=== PATIENT | male | born 1995 | race African-American/Black ===

== ENCOUNTER 2016-04-14 20:27 | Emergency (ER) | payer BC ==
[~2016-04-14] VITALS: Ht 185.4 cm; Wt 92.4 kg
[2016-04-14 20:36] VITALS: TEMP 37; Ht 185.4 cm; Wt 92.4 kg
[2016-04-14] MEDS ORDERED: CEFTRIAXONE SOD 350MG/ML 1 GM VIAL IM STA (20:52)
[2016-04-14] MEDS ORDERED: AZITHROMYCIN 250 MG TAB PO STA (20:52)
--- NOTE | 2016-04-14 21:22 | EMERGENCY ROOM VISIT NOTE ---
ED Visit Note First contact with patient: 20:44 Chief Complaint: STD Test Request History of Present Illness: Patient is a 20-year-old male who presents to the emergency Department this evening requesting STD testing. He reports that his ex-girlfriend contacted him and informed him that she tested positive for gonorrhea. He reports that he had unprotected sex with her approximately 3 weeks ago. He denies any penile discharge, drainage, burning with urination, or sexual dysfunction. He denies any testicular discomfort. He reports no fevers, chills, nausea, or vomiting. The patient rates his current discomfort as 0/10. Was tested in the summer was found to be negative. Medications: No current medications. Allergies: No known allergies. PMH: No pertinent past medical history. 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 ROS: All pertinent positive and negative review of systems are appropriately documented in the History of Present Illness. Physical Exam: VITAL SIGNS - Vital signs and nursing notes were reviewed. GENERAL - 20-year-old Male appearing his stated age who is in no acute distress. Communicates well with provider and answers questions appropriately. ABDOMEN - Abdominal contour flat and without pulsations or visible masses. BS normoactive all four quadrants. No tenderness to palpation appreciated throughout. No palpable masses, hepatosplenomegaly, or ascites noted. GENITOURINARY - Circumcised male without penile lesions or adhesions. No urethral discharge. No testicular tenderness to palpation appreciated bilaterally. No palpable masses. PSYCH - A&Ox3 and cooperates fully with examiner. Pt is very pleasant and interacts well with examiner. ED Course: Patient was seen and evaluated by myself. I had a lengthy discussion with the patient regarding symptoms. The patient declines urethral swab. The patient's urine was sent for GC and chlamydia testing. Urinalysis will be obtained as well. The patient was treated with 250 mg Rocephin and 1 g of azithromycin. He was instructed on following up with [facility] for repeat testing in one week. The patient was educated on worrisome symptoms for return visit to the emergency department. Patient discharged home in good condition. In the evaluation and treatment of this patient, the following differential diagnoses were considered: Kidney Stone, STI, Bladder Cancer, Amongst Others. Impression: STI Exposure Discharge Instructions: You have been seen in the Emergency Department for your STD Exposure. Urine sample has been obtained to rule out possible infections including Gonorrhea and Chlamydia. You will be contacted with the results of this test in approximately 72 hours. You have been treated prophylactically in the Emergency Department with 250 mg of Rocephin (ceftriaxone) intramuscularly and 1 g of azithromycin orally. This is part of standard protocol to reduce the risk of possible bacterial infection. As with any Emergency Department visit, you should follow-up with your Primary Care Provider from today's visit. Return to the Emergency Department if your symptoms worsen despite the treatment plan outlined above or if you develop the following symptoms: intractable pain, increased swelling, redness, or urethral discharge. Current/Historical Medications No Active Prescriptions or Reported Meds Allergies Coded Allergies: No Known Allergies (Unverified , 04/14/16) Vital Signs Date Time Temp Pulse Resp B/P Pulse Ox O2 Delivery O2 Flow Rate FiO2 04/14/16 21:25 87 20 143/97 98 04/14/16 20:36 37.0 86 16 160/82 96 Room Air Laboratory Results Test 04/14/16 20:50 Urine Color DK YELLOW Urine Appearance CLEAR (CLEAR) Urine pH 5.5 (4.5-7.5) Urine Specific [place] 1.033 (1.000-1.030) Urine Protein NEG (NEG) Urine Glucose (UA) NEG (NEG) Urine Ketones 3+ (NEG) Urine Occult Blood NEG (NEG) Urine Nitrite NEG (NEG) Urine Bilirubin NEG (NEG) Urine Urobilinogen NEG (NEG) Urine Leukocyte Esterase NEG (NEG) Medications Administered Medications (Trade) Dose Ordered Sig/Jyoti Route Start Time Stop Time Status Last Admin Dose Admin Ceftriaxone Sodium (Rocephin Im) 250 mg NOW STAT IM 04/14/16 20:52 04/14/16 20:53 DC 04/14/16 21:01 250 MG Azithromycin (Zithromax Tab) 1,000 mg NOW STAT PO 04/14/16 20:52 04/14/16 20:53 DC 04/14/16 21:01 1,000 MG Departure Information Impression Primary Impression: Exposure to STD Dispostion Home / Self-Care Condition GOOD Prescriptions No Active Prescriptions or Reported Meds Referrals [facility] (PCP) Patient Instructions ED STD Male Treated, [facility] Additional Instructions You have been seen in the Emergency Department for your STD Exposure. Urine sample has been obtained to rule out possible infections including Gonorrhea and Chlamydia. You will be contacted with the results of this test in approximately 72 hours. You have been treated prophylactically in the Emergency Department with 250 mg of Rocephin (ceftriaxone) intramuscularly and 1 g of azithromycin orally. This is part of standard protocol to reduce the risk of possible bacterial infection. As with any Emergency Department visit, you should follow-up with your Primary Care Provider from today's visit. Return to the Emergency Department if your symptoms worsen despite the treatment plan outlined above or if you develop the following symptoms: intractable pain, increased swelling, redness, or urethral discharge.
[2016-04-14 21:25] VITALS: BP 143/97; PULSE 87; O2SAT 98
[2016-04-14 21:31] LABS: URINE APPEARANCE CLEAR (CLEAR); URINE BILIRUBIN NEG (NEG); URINE COLOR DK YELLOW; URINE NITRITE NEG (NEG); URINE PH 5.5 (4.5-7.5); URINE SPECIFIC GRAVITY 1.033 (1.000-1.030); UROBILINOGEN NEG (NEG); ZZUR CULT IF INDIC CLEAN CATCH NO
[2016-04-14 21:32] LABS: MANUAL MICROSCOPIC REQUIRED? NO; REVIEW REQ? NO
[2016-04-18 09:32] LABS: CHLAMYDIA TRACH RNA*** NOT DETECTED (NOT DETECTED); GC (NEIS GONORRHOEAE)RNA** NOT DETECTED (NOT DETECTED)
== END 2016-04-14 21:26 | disposition home or self-care (01) ==
LOC: C.EDB 20:28 → C.EDD 21:26
DX: Z20.2 Contact with and (suspected) exposure to infections with a predominantly sexual mode of transmission (principal)

== ENCOUNTER 2016-09-09 09:40 | Emergency (ER) | payer BC ==
[~2016-09-09] VITALS: Ht 185.4 cm; Wt 91.1 kg
[2016-09-09 09:47] VITALS: TEMP 36.5; Ht 185.4 cm; Wt 91.1 kg
--- NOTE | 2016-09-09 09:57 | EMERGENCY ROOM VISIT NOTE ---
ED Visit Note First contact with patient: 09:56 CHIEF COMPLAINT: Hand injury HISTORY OF PRESENT ILLNESS: This 21-year-old male patient presented to the emergency department after they injured the right hand yesterday afternoon playing football, patient states he fell he caught it wrong and pain in side of his hand since that time. The patient rates the pain as aching/throbbing and 6/ 10. The patient denies any numbness or tingling. There is no laceration. The patient does note have injuries to the wrist. The patient has not had a previous fracture to this hand. REVIEW OF SYSTEMS: A 6 system review of systems was completed with positives and pertinent negatives in the HPI. ALLERGIES: See chart MEDICATIONS: See chart PMH: See chart SOCIAL HISTORY: See chart PHYSICAL EXAM: Vital Signs: Reviewed Nurse's notes, vital signs stable. GENERAL : Pleasant and cooperative, in no acute distress, but appears to be in pain, well-developed, well-nourished. MUSCULOSKELETAL: There is no deformity of the right hand. There is tenderness present in the right hand over the fourth and fifth metacarpals. Normal thumb opposition to all fingers. Curriculum Development Specialist strength 4/5. There is no laceration. Capillary refill less than 2 seconds. No tenderness of the fingers or wrist. Full range of motion of the wrist. No snuff box tenderness. Radial pulse 2+. NEURO: Alert and oriented to person, place, and time. Normal sensation to light and sharp touch. EMERGENCY DEPARTMENT COURSE: I examined the patient. An x-ray of the right wrist and hand was reviewed by myself and radiologist and shows no acute fracture of the base of the fifth metacarpal, nondisplaced. The patient was placed in an Ortho-Glass ulnar gutter splint under my direction, neurovascularly intact post-splinting. Patient was instructed to follow up with orthopedics. The patient was discharged home in good condition. Current/Historical Medications No Active Prescriptions or Reported Meds Allergies Coded Allergies: No Known Allergies (Unverified , 04/14/16) Vital Signs Date Time Temp Pulse Resp B/P (MAP) Pulse Ox O2 Delivery O2 Flow Rate FiO2 09/09/16 11:43 70 20 150/100 98 09/09/16 09:47 36.5 89 18 136/94 99 Room Air Medications Administered Medications (Trade) Dose Ordered Sig/Jyoti Route Start Time Stop Time Status Last Admin Dose Admin Ibuprofen (Motrin Tab) 600 mg NOW STAT PO 09/09/16 10:35 09/09/16 10:38 DC 09/09/16 10:48 600 MG Departure Information Impression Primary Impression: Fracture of fifth metacarpal bone of right hand Dispostion Home / Self-Care Condition GOOD Prescriptions No Active Prescriptions or Reported Meds Referrals [facility] (PCP) Patient Instructions ED Fx Hand Closed, Fx Boxer, [facility] Additional Instructions Ice and elevation for 24-48 hrs. Wear the splint at all times to support your broken bone. The splint cannot get wet. Ibuprofen 600 mg and Tylenol 1000 mg every 6-8 hrs as needed for pain. Follow up with the orthopedic surgeon within the next week. Call for an appointment. School Instructions Return To School: after follow-up Additional School Instructions: No weight lifting with the right hand due to fracture, until cleared by orthopedics. Problem Qualifiers Primary Impression: Fracture of fifth metacarpal bone of right hand Encounter type: initial encounter Fracture type: closed Metacarpal location : base Fracture alignment: nondisplaced Qualified Codes: S62.346A - Nondisplaced fracture of base of fifth metacarpal bone, right hand, initial encounter for closed fracture
--- NOTE | 2016-09-09 10:24 | DIAGNOSTIC IMAGING REPORT ---
RIGHT HAND MIN 3 VIEWS ROUTINE CLINICAL HISTORY: right hand pain Right trauma. Pain. COMPARISON: None. DISCUSSION: Nondisplaced cortical fracture base fifth metacarpal. Localized soft tissue edema. All remaining osseous structures are unremarkable. IMPRESSION: Cortical fracture base fifth metacarpal. Localized soft tissue edema. The above report was generated using voice recognition software. It may contain grammatical, syntax or spelling errors. Electronically signed by: Ernie Richey M.D. 09/09/2016 10:22 AM Dictated Date/Time: 09/09/2016 10:21 AM
--- NOTE | 2016-09-09 10:25 | DIAGNOSTIC IMAGING REPORT ---
RIGHT WRIST W/NAVICULAR MIN 3 VIEWS CLINICAL HISTORY: right wrist pain Right COMPARISON: None. DISCUSSION: Fracture base fifth metacarpal. Localized soft tissue edema. The remaining osseous structures are unremarkable. No evidence for dislocation. IMPRESSION: Cortical fracture base fifth metacarpal. Localized soft tissue edema. The above report was generated using voice recognition software. It may contain grammatical, syntax or spelling errors. Electronically signed by: Ernie Richey M.D. 09/09/2016 10:23 AM Dictated Date/Time: 09/09/2016 10:23 AM
[2016-09-09] MEDS ORDERED: IBUPROFEN 600 MG TAB PO STA (10:35)
[2016-09-09 11:43] VITALS: BP 150/100; PULSE 70; O2SAT 98
== END 2016-09-09 11:45 | disposition home or self-care (01) ==
LOC: C.EDB 09:41 → C.EDC 11:45
DX: S62.346A Nondisplaced fracture of base of fifth metacarpal bone, right hand, initial encounter for closed fracture (principal); W18.39XA Other fall on same level, initial encounter; Y93.61 Activity, american tackle football; Y99.8 Other external cause status

== ENCOUNTER → 2016-10-26 | Outpatient (CLI) | payer BC ==
--- NOTE | 2016-10-26 14:45 | DIAGNOSTIC IMAGING REPORT ---
RIGHT FIFTH FINGER RADIOGRAPHS CLINICAL HISTORY: Right fifth finger pain. COMPARISON: Right hand radiographs September 09, 2016. FINDINGS: Note is made of a mildly displaced angulated fracture within the base of the right fifth metacarpal. Fracture alignment is unchanged since exam of September 19, 2016. Partial interval healing is noted. Fracture has largely healed. No additional fractures are identified. IMPRESSION: No change in alignment of the partially healed fracture of the base of the right fifth metacarpal. Electronically signed by: Silviano Alvarez M.D. 10/26/2016 2:44 PM Dictated Date/Time: 10/26/2016 2:42 PM
== END | disposition home or self-care (01) ==
LOC: C.RDSM 14:30
PROVIDERS: ATTEND Physician Assistant
DX: S62.316D Displaced fracture of base of fifth metacarpal bone, right hand, subsequent encounter for fracture with routine healing (principal); X58.XXXD Exposure to other specified factors, subsequent encounter